=== PATIENT | female | born 1990 | race Two or more races ===

== ENCOUNTER 2020-07-21 14:08 | Inpatient (IN) | payer OTHER ==
[~2020-07-21] VITALS: Wt 70.8 kg
== END 2020-07-23 14:15 | disposition home or self-care (01) | DRG 833 ==
LOC: OB/GYN 14:08
PROVIDERS: ADMIT Specialist; ATTEND Specialist
PROC: BY49ZZZ Ultrasonography of First Trimester, Single Fetus (ICD-10-PCS; principal; 2020-07-21)
DX: O00.80 Other ectopic pregnancy without intrauterine pregnancy (principal)

== ENCOUNTER 2021-01-10 23:55 | Outpatient (CLI) | payer OTHER | END 2021-01-10 23:56 | disposition home or self-care (01) | LOC: PPH VACUNA 23:55 | DX: Z23 Encounter for immunization (principal) ==

== ENCOUNTER → 2021-02-01 17:25 | Outpatient (CLI) | payer OTHER | END | disposition home or self-care (01) | LOC: PPH VACUNA 17:25 | DX: Z23 Encounter for immunization (principal) ==

== ENCOUNTER 2021-02-15 12:41 | Emergency (ER) | payer OTHER ==
[~2021-02-15] VITALS: Ht 162.6 cm; Wt 72.1 kg
== END 2021-02-15 17:13 | disposition home or self-care (01) ==
LOC: ER 12:41
DX: R10.2 Pelvic and perineal pain (principal)

== ENCOUNTER 2023-08-16 14:31 | Inpatient (IN) | payer OTHER ==
[~2023-08-16] VITALS: Ht 162.6 cm; Wt 68.9 kg
[2023-08-16] MEDS ORDERED: PRENA1 TRUE CO1 EACH (15:32)
[2023-08-16 17:13] LABS: HEMATOCRIT 36.5 % (36.0-45.00); HEMOGLOBIN 12.1 g/dL (12.0-15.00); MEAN CELL VOLUME 83.6 fL (80.00-100.00); MEAN CORPUSCULAR HEMOGLOBIN 27.7 pg (27.00-32.0); MEAN CORPUSCULAR HGB CONC 33.2 g/dl (32.0-36.0); PLATELET COUNT 307 K/uL (150-450); RED BLOOD COUNT 4.36 M/uL (4.00-6.00); RED CELL DISTRIBUTION WIDTH 13.2 % (11.5-14.5)
[2023-08-16 19:22] LABS: INR 0.98; PARTIAL THROMBOPLASTIN TIME 25.7 SECONDS (22.0-34.0); PROTHROMBIN TIME 10.3 SECONDS (9.0-11.5)
[2023-08-17 07:34] LABS: HEMATOCRIT 32.5 % (36.0-45.00); HEMOGLOBIN 10.8 g/dL (12.0-15.00); MEAN CELL VOLUME 85.4 fL (80.00-100.00); MEAN CORPUSCULAR HEMOGLOBIN 28.3 pg (27.00-32.0); MEAN CORPUSCULAR HGB CONC 33.1 g/dl (32.0-36.0); PLATELET COUNT 268 K/uL (150-450); RED BLOOD COUNT 3.81 M/uL (4.00-6.00); RED CELL DISTRIBUTION WIDTH 13.2 % (11.5-14.5)
== END 2023-08-17 16:11 | disposition home or self-care (01) | DRG 819 ==
LOC: ER 14:31 → OB/GYN 19:14 → O/R 19:14 → OB/GYN 22:04
PROVIDERS: Emergency Medicine; ADMIT Specialist; ATTEND Specialist
PROC: 0UT60ZZ Resection of Left Fallopian Tube, Open Approach (ICD-10-PCS; 2023-08-16)
PROC: 10D20ZZ Extraction of Products of Conception, Ectopic, Open Approach (ICD-10-PCS; principal; 2023-08-16 18:00)
DX: O00.102 Left tubal pregnancy without intrauterine pregnancy (principal); Z20.822 Contact with and (suspected) exposure to COVID-19